=== PATIENT | male | born 1940 | race Caucasian/White ===

== ENCOUNTER 2018-11-15 13:15 | Inpatient (IN) | payer MEDICARE, BC ==
[2018-11-15] MEDS: BUPIVACAINE 0.5%/EPI (SDV) 30 ML INJ
[2018-11-15] MEDS: CEFAZOLIN 2 GM/50 ML (PMX) 50 ML IVPB (11:00)
[~2018-11-15 13:15] MED LIST: DESFLURANE 15 MIN; DEXAMETHASONE 4 MG/ML 5 ML INJ; LABETALOL HCL 20MG INJ; LACTATED RINGER'S 1,000 ML IV*; LIDOCAINE 2% (SDV) 5 ML INJ; ONDANSETRON 4 MG INJ; PROPOFOL 200 MG INJ
[2018-11-15] MEDS ORDERED: FENTAnyl 50 MCG/ML VIAL ×2 (14:46→16:25)
[2018-11-15] MEDS ORDERED: MIDAZOLAM 1 MG/ML 2 ML INJ (14:46)
[2018-11-15] MEDS ORDERED: METOCLOPRAMIDE 10 MG INJ (14:47)
[2018-11-15] MEDS ORDERED: CEFAZOLIN 1 GM INJ (14:48)
[2018-11-15] MEDS ORDERED: NEOSTIGMINE 3 MG/3 ML SYRINGE (14:50)
[2018-11-15] MEDS ORDERED: GLYCOPYRROLATE 0.4 MG INJ (14:50)
[2018-11-15] MEDS ORDERED: HYDROmorphONE 0.5 MG/0.5 ML SYG IV (15:00)
[2018-11-15] MEDS ORDERED: NALOXONE (0.4 MG/ML) INJ IV (15:00)
[2018-11-15] MEDS ORDERED: ACETAMINOPHEN 325 MG TAB PO (15:00)
[2018-11-15] MEDS ORDERED: DIPHENHYDRAMINE 50 MG INJ IV ×2 (15:00→15:30)
[2018-11-15] MEDS ORDERED: ONDANSETRON 4 MG INJ IV ×2 (15:00→15:30)
[2018-11-15] MEDS ORDERED: CEPASTAT LOZENGE MT (15:00)
[2018-11-15] MEDS ORDERED: AL HYDROX/MG HYDROX/SIMETH 30 ML CUP PO (15:00)
[2018-11-15] MEDS ORDERED: DIPHENHYDRAMINE 25 MG CAP PO (15:00)
[2018-11-15] MEDS ORDERED: HYDROCODONE/APAP (10/325) TAB PO ×2 (15:00)
[2018-11-15] MEDS ORDERED: BISACODYL 10 MG SUPP PR (15:00)
[2018-11-15] MEDS ORDERED: D5W-0.45 NACL + KCL 20 MEQ 1,000 ML IV (15:00)
[2018-11-15] MEDS ORDERED: CYCLOBENZAPRINE 10 MG TAB PO (15:00)
[2018-11-15] MEDS ORDERED: FENTAnyl 50 MCG/ML VIAL IV ×2 (15:30)
[2018-11-15] MEDS ORDERED: LEVALBUTEROL (NEB) 1.25 MG/0.5 ML AMP HHN (15:30)
[2018-11-15] MEDS ORDERED: MEPERIDINE 25 MG INJ IV (15:30)
[2018-11-15] MEDS ORDERED: LABETALOL HCL 20MG INJ IV (15:30)
[2018-11-15] MEDS ORDERED: hydrALAzine 20 MG INJ IV (15:30)
[2018-11-15] MEDS ORDERED: HYDROmorphONE 1 MG/5 ML IV SYRINGE IV ×3 (15:30)
[2018-11-15] MEDS: POLYMYXIN/BACITRACIN 1L IRRIG (15:38)
[2018-11-15] MEDS: SURGIFOAM POWDER 1 GM KIT (15:38)
[2018-11-15] MEDS: THROMBIN 5000 UNIT VIAL ZFS (15:38)
[2018-11-15] MEDS: CEFAZOLIN 1 GM/50 ML (PMX) 50 ML IVPB (16:15)
[2018-11-15] MEDS: BUPIVACAINE 0.25% (MPF) 30 ML INJ INJ (17:04)
[2018-11-15] MEDS: BUPIVACAINE 0.25% (MPF) 30 ML INJ (17:04)
[2018-11-15] MEDS ORDERED: DOCUSATE SODIUM 100 MG CAP PO (21:00)
== END 2018-11-15 20:00 | disposition home or self-care (01) | DRG 472 ==
LOC: REC 13:15 → MS1 19:35
PROC: 0RG20AJ Fusion of 2 or more Cervical Vertebral Joints with Interbody Fusion Device, Posterior Approach, Anterior Column, Open Approach (ICD-10-PCS; principal; 2018-11-15 15:30)
DX: M48.02 Spinal stenosis, cervical region (principal); M48.52XA Collapsed vertebra, not elsewhere classified, cervical region, initial encounter for fracture; M50.323 Other cervical disc degeneration at C6-C7 level; G89.29 Other chronic pain; I10 Essential (primary) hypertension; E78.00 Pure hypercholesterolemia, unspecified; Z96.643 Presence of artificial hip joint, bilateral; Z87.891 Personal history of nicotine dependence; Z85.46 Personal history of malignant neoplasm of prostate
CPT/HCPCS: 72040